=== PATIENT | male | born 1955 | race Hispanic/Latino ===

== ENCOUNTER 2020-11-03 13:33 | Emergency (ER) | payer BC, MEDICARE ==
[~2020-11-03] VITALS: Ht 188 cm; Wt 83.9 kg
[~2020-11-03 13:33] MED LIST: JANUMET 50-1,01 EACH PO; LEVEMIR 3M100 UNITS/ SQ; LISINOPRIL2.5 MG PO
[2020-11-03] MEDS ORDERED: SODIUM CHLORIDE 0.9% 1000ML 1,000 ML IV STA (13:36)
[2020-11-03] MEDS ORDERED: PROMETHAZINE 12.5MG/ NACL 0.9% 12.5 MG/50 ML BAG IV ONE (13:45)
[2020-11-03] MEDS ORDERED: FAMOTIDINE 20 MG/2 ML VIAL IV ONE ×2 (13:45→14:43)
[2020-11-03] MEDS ORDERED: ACETAMINOPHEN 325 MG TAB PO ONE (13:45)
[2020-11-03] MEDS ORDERED: DIPHENHYDRAMINE HCL INJ 50 MG/ML VIAL IV ONE (13:45)
[2020-11-03] MEDS ORDERED: KETOROLAC TROMETHAMINE 30 MG/ML VIAL IV ONE (13:45)
[2020-11-03] MEDS ORDERED: ESGIC 50-325-41 EACH PO (14:05)
[2020-11-03] MEDS ORDERED: ONDANSETRON ODT4 MG PO (14:05)
[2020-11-03] MEDS ORDERED: PRAVACHOL40 MG PO (14:11)
[2020-11-03] MEDS ORDERED: NOVOLOG MI100 UNIT/1 SC (14:11)
[2020-11-03] MEDS ORDERED: ASPIRIN EC81 MG PO (14:11)
[2020-11-03] MEDS ORDERED: GLIPIZIDE5 MG PO (14:11)
[2020-11-03] MEDS ORDERED: ATORVASTATIN CA20 MG PO (14:11)
[2020-11-03] MEDS ORDERED: METFORMIN HCL850 MG PO (14:11)
[2020-11-03] MEDS ORDERED: KETOROLAC TROMETHAMINE 30 MG/ML VIAL ONE (14:41)
[2020-11-03] MEDS ORDERED: DIPHENHYDRAMINE HCL INJ 50 MG/ML VIAL ONE (14:41)
[2020-11-03] MEDS ORDERED: ACETAMINOPHEN 325 MG TAB ONE (14:42)
[2020-11-03] MEDS ORDERED: PROMETHAZINE HCL (IM) 25 MG/ML VIAL IM ONE (14:42)
[2020-11-03] MEDS ORDERED: SODIUM CHLORIDE 0.9% 1000ML 1,000 ML ONE (14:43)
[2020-11-03] MEDS ORDERED: SODIUM CHLORIDE 0.9% 50ML 50 ML ONE (14:43)
[2020-11-03 15:39] VITALS: BP 143/69
== END 2020-11-03 15:37 | disposition home or self-care (01) ==
LOC: FSED 13:38
DX: R51.9 Headache, unspecified (principal); E11.65 Type 2 diabetes mellitus with hyperglycemia
CPT/HCPCS: 70450; 80053; 81003; 85025; 96374; 96375; 99284; J1200; J1885; J2550; J7030

== ENCOUNTER → 2025-02-07 | Outpatient (REF) | payer MEDICARE, OTHER ==
[~2025-02-07] MED LIST changes: +ASPIRIN EC81 MG PO; +ATORVASTATIN CA20 MG PO; +ESGIC 50-325-41 EACH PO; +GLIPIZIDE5 MG PO; +METFORMIN HCL850 MG PO; +NOVOLOG MI100 UNIT/1 SC; +ONDANSETRON ODT4 MG PO; +PRAVACHOL40 MG PO
== END ==
LOC: RAD 14:13
PROVIDERS: ATTEND Internal Medicine
DX: S43.421A Sprain of right rotator cuff capsule, initial encounter (principal)

== ENCOUNTER → 2025-02-20 | Outpatient (REF) | payer MEDICARE, OTHER | LOC: CT 11:54 | PROVIDERS: ATTEND Internal Medicine | DX: M85.88 Other specified disorders of bone density and structure, other site (principal); S43.421A Sprain of right rotator cuff capsule, initial encounter; Z12.2 Encounter for screening for malignant neoplasm of respiratory organs | CPT/HCPCS: 71250; 77080 ==